=== PATIENT | male | born 1960 | race Caucasian/White ===

== ENCOUNTER 2020-10-29 01:26 | Emergency (ER) | payer BC ==
[~2020-10-29] VITALS: Ht 190.5 cm; Wt 135.0 kg
[~2020-10-29 01:26] MED LIST: ALBU8HFA PO; AMLO5TAB PO; ASPI-611 PO; ATOR20TA66 PO; CLON-529 PO; DOCU100C40 PO; HYDR-3972 PO; HYDR-4353 PO; IBUP-2801 PO; LISI40TA13 PO; LOP25T PO; METF500T PO; TRAM50TA2 PO; ZINC50TA15 PO
[2020-10-29 01:28] VITALS: BP 180/79
[2020-10-29 03:22] LABS: BASOPHILS % (AUTO) 0.1 % (0-1); EOSINOPHILS % (AUTO) 0.4 % (0-6); HEMATOCRIT 41.2 % (42.0-52.0); HEMOGLOBIN 13.6 g/dl (14.0-17.9); LYMPHOCYTES # (AUTO) 0.6 X10'3 (1.1-4.8); LYMPHOCYTES % (AUTO) 10.4 % (21-51); MEAN CORPUSCULAR HEMOGLOBIN 28.3 PG (27.0-31.0); MEAN CORPUSCULAR HGB CONC 33.1 g/dL (33.0-36.5); MEAN CORPUSCULAR VOLUME 85.5 FL (78-98); MEAN PLATELET VOLUME 7.5 FL (7.4-10.4); MONOCYTES # (AUTO) 0.6 X10'3 (0-0.9); NEUTROPHILS # (AUTO) 4.7 X10'3 (1.8-7.7); NEUTROPHILS % (AUTO) 79.1 % (42-75); PLATELET COUNT 264 X10'3 (140-440); RED BLOOD COUNT 4.82 X10'6 (4.70-6.10); RED CELL DISTRIBUTION WIDTH 13.5 % (11.5-14.5); WHITE BLOOD COUNT 5.9 X10'3 (4.5-11.0)
[2020-10-29] MEDS ORDERED: dexamethasone sod phosphate 10mg/ml inj PO STA (03:30)
[2020-10-29 04:54] LABS: ALANINE AMINOTRANSFERASE 35 U/L (12-78); ALBUMIN 3.7 G/DL (3.4-5.0); ALBUMIN/GLOBULIN RATIO 0.8 (1.1-1.5); ALKALINE PHOSPHATASE 90 IU/L (46-116); ANION GAP 9 (8-16); ASPARTATE AMINO TRANSFERASE 38 U/L (10-37); BILIRUBIN,TOTAL 0.5 MG/DL (0.1-1.0); BLOOD UREA NITROGEN 27 MG/DL (7-18); BUN/CREATININE RATIO 26.5 (5.4-32.0); CALCIUM 8.9 MG/DL (8.5-10.1); CHLORIDE 99 MMOL/L (99-107); CREATININE 1.02 MG/DL (0.60-1.10); GLUCOSE 162 MG/DL (70-104); POTASSIUM 3.8 MMOL/L (3.5-5.1); SODIUM 139 MMOL/L (135-145); TOTAL CARBON DIOXIDE 30.7 MMOL/L (24-32); TOTAL PROTEIN 8.1 G/DL (6.4-8.2); eGFR 74 ML/MIN
[2020-10-29 05:06] LABS: MAGNESIUM 2.5 MG/DL (1.5-2.4); TROPONIN I < 0.04 NG/ML (0.0-0.05)
[2020-10-29] MEDS ORDERED: ALBU8.5H17 IH (05:25)
[2020-10-29] MEDS ORDERED: DEXA6TAB6 PO (05:25)
== END 2020-10-29 05:44 | disposition home or self-care (01) ==
LOC: ER 01:27
DX: U07.1 COVID-19 (principal); J12.82 Pneumonia due to coronavirus disease 2019; E78.00 Pure hypercholesterolemia, unspecified; I10 Essential (primary) hypertension; J45.909 Unspecified asthma, uncomplicated; E11.9 Type 2 diabetes mellitus without complications
CPT/HCPCS: 36415; 71045; 80053; 83605; 83735; 83880; 84145; 84484; 85025; 87040; 87635; 99284; C9803; J1100

== ENCOUNTER 2024-12-23 10:23 | Outpatient (CLI) | payer MEDICARE, MEDICAID ==
[~2024-12-23 10:23] MED LIST changes: +ALBU8.5H17 IH; +DEXA6TAB6 PO; +IBUP-2768 PO; -IBUP-2801 PO; -LISI40TA13 PO; +LISI40TA20 PO; -ZINC50TA15 PO; +ZINC50TA80 PO
--- NOTE | 2024-12-23 12:04 | RADIOLOGY REPORT ---
CLINICAL INDICATION: CHRONIC LEFT SHOULDER PAIN TECHNIQUE: 4 radiographic views of the left shoulder were obtained. Comparison: None FINDINGS/IMPRESSION: There is no evidence of acute fracture or dislocation. 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
== END 2024-12-23 23:59 | disposition home or self-care (01) ==
LOC: RAD 10:23
PROVIDERS: ATTEND Nurse Practitioner
DX: M19.012 Primary osteoarthritis, left shoulder (principal); M25.512 Pain in left shoulder
CPT/HCPCS: 73030